=== PATIENT | female | born 1990 | race Caucasian/White ===

== ENCOUNTER → 2025-06-22 07:55 | Outpatient (REF) | payer BC, SELFPAY ==
[2025-06-22 10:30] LABS: ALT (SGPT) 26 U/L (0-35); AST (SGOT) 18 U/L (14-36); Albumin 4.3 g/dl (3.5-5.0); Alkaline Phosphatase 52 U/L (38-126); Blood Urea Nitrogen 17 mg/dl (7-17); Calcium 8.8 mg/dl (8.4-10.2); Carbon Dioxide 26 mmol/L (22-30); Chloride 107 mmol/L (98-107); Glucose 104 mg/dl (70-99); Potassium 4.9 mmol/L (3.5-5.1); Sodium 138 mmol/L (135-145); Total Protein 7.0 g/dl (6.3-8.2); eGFR > 60.00
[2025-06-22 10:32] LABS: C-Reactive Protein 12.30 mg/L (0.0-10.00)
[2025-06-22 11:20] LABS: Hematocrit 36.6 % (37.0-47.0); Hemoglobin 12.5 g/dL (12.0-16.0); Mean Corp Hgb Conc. 34.2 g/dL (33.0-37.0); Mean Corpuscular Volume 94.6 fL (81.0-99.0); Nucleated Red Blood Cells % 0 %; Platelet Count 248 10^3/uL (130-400); Red Cell Dist. Width 12.6 % (11.5-14.5)
[2025-06-23 19:18] LABS: HLA-B27 Negative (Negative)
[2025-06-24 03:07] LABS: CCP Antibody IgG/IgA 3 Units (0-19)
[2025-06-24 15:10] LABS: Rheumatoid Agglutinin Less Than 10 IU (<10 IU)
== END ==
LOC: HWLAB 07:55
PROVIDERS: ATTENDING PHYSICIAN Internal Medicine; FAMILY PHYSICIAN Student in an Organized Health Care Education/Training Program
DX: M25.50 Pain in unspecified joint (principal); M25.60 Stiffness of unspecified joint, not elsewhere classified; M54.50 Low back pain, unspecified
CPT/HCPCS: 36415; 72114; 72202; 73560; 73565; 80053; 85025; 85652; 86140; 86200; 86430; 86812